=== PATIENT | female | born 1995 | race Asian ===

== ENCOUNTER 2017-02-01 19:59 | Emergency (ER) | payer OTHER ==
[~2017-02-01] VITALS: Ht 157.5 cm; Wt 77.1 kg
[2017-02-01 20:42] VITALS: BP 150/85; TEMP 99.5
== END 2017-02-01 20:43 | disposition home or self-care (01) ==
LOC: ED 19:59
DX: H65.192 Other acute nonsuppurative otitis media, left ear (principal); J02.8 Acute pharyngitis due to other specified organisms; B00.1 Herpesviral vesicular dermatitis
CPT/HCPCS: 99281

== ENCOUNTER 2017-10-28 13:01 | Emergency (ER) | payer OTHER ==
[~2017-10-28] VITALS: Ht 157.5 cm; Wt 74.8 kg
[2017-10-28 13:15] VITALS: TEMP 98.3
[2017-10-28 15:37] VITALS: BP 132/68
== END 2017-10-28 15:46 | disposition home or self-care (01) ==
LOC: ED 13:01
DX: S99.921A Unspecified injury of right foot, initial encounter (principal); W20.8XXA Other cause of strike by thrown, projected or falling object, initial encounter; Y92.89 Other specified places as the place of occurrence of the external cause
CPT/HCPCS: 96372; 99283; J1885

== ENCOUNTER 2017-11-05 10:31 | Outpatient (CLI) | payer OTHER | END 2017-11-05 19:20 | disposition home or self-care (01) | LOC: RAD 10:31 | DX: M79.671 Pain in right foot (principal) ==

== ENCOUNTER 2017-11-26 11:36 | Outpatient (CLI) | payer OTHER ==
[2017-11-26 12:47] LABS: POTASSIUM 3.9 mmol/L (3.6-5.2)
[2017-11-26 12:56] LABS: PLATELET COUNT 428 K/uL (152-353)
== END 2017-11-26 22:18 | disposition home or self-care (01) ==
LOC: LABW 11:36
PROVIDERS: Nurse Practitioner Family
DX: R10.13 Epigastric pain (principal); R11.0 Nausea
CPT/HCPCS: 36415; 80053; 82248; 85027; 86318

== ENCOUNTER 2020-12-06 09:33 | Outpatient (CLI) | payer OTHER ==
[2020-12-06 09:59] LABS: PLATELET COUNT 478 K/uL (152-353)
== END 2020-12-06 21:10 | disposition home or self-care (01) ==
LOC: LABW 09:33
PROVIDERS: ATTEND Physician Assistant
DX: M35.9 Systemic involvement of connective tissue, unspecified (principal)
CPT/HCPCS: 36415; 81374; 84443; 85008; 85027; 85652; 86038; 86060; 86140; 86430; 86618